=== PATIENT | female | born 1980 | race Caucasian/White ===

== ENCOUNTER → 2023-06-29 14:26 | Outpatient (REF) | payer OTHER, SELFPAY | LOC: RAD 14:26 | PROVIDERS: ATTENDING PHYSICIAN Nurse Practitioner Family | DX: R14.0 Abdominal distension (gaseous) (principal) | CPT/HCPCS: 74177; Q9967 ==

== ENCOUNTER → 2023-11-11 12:34 | Outpatient (REF) | payer OTHER, SELFPAY | LOC: HWWDC 12:34 | PROVIDERS: ATTENDING PHYSICIAN Nurse Practitioner Family | DX: Z12.31 Encounter for screening mammogram for malignant neoplasm of breast (principal) | CPT/HCPCS: 77063; 77067 ==

== ENCOUNTER → 2023-11-19 10:06 | Outpatient (REF) | payer OTHER, SELFPAY | LOC: WDC 10:06 | PROVIDERS: ATTENDING PHYSICIAN Nurse Practitioner Family | DX: R92.8 Other abnormal and inconclusive findings on diagnostic imaging of breast (principal) | CPT/HCPCS: 77065 ==

== ENCOUNTER → 2024-12-06 10:33 | Outpatient (REF) | payer OTHER, SELFPAY | LOC: HWWDC 10:33 | PROVIDERS: ATTENDING PHYSICIAN Internal Medicine | DX: Z12.31 Encounter for screening mammogram for malignant neoplasm of breast (principal) | CPT/HCPCS: 77063; 77067 ==

== ENCOUNTER → 2024-12-12 09:19 | Outpatient (REF) | payer OTHER, SELFPAY | LOC: WDC 09:19 | PROVIDERS: ATTENDING PHYSICIAN Internal Medicine | DX: R92.8 Other abnormal and inconclusive findings on diagnostic imaging of breast (principal) | CPT/HCPCS: 76642 ==